=== PATIENT | male | born 1945 | race Caucasian/White ===

== ENCOUNTER 2016-06-04 05:49 | Inpatient (IN) | payer BC, MEDICARE ==
[2016-05-29 13:21] LABS: BASOPHILS 0.3 %; BASOPHILS ABSOLUTE 0.03 10/3/uL (0.0-0.16); EOSINOPHILS 1.9 %; EOSINOPHILS ABSOLUTE 0.19 10/3/uL (0.0-0.53); IMMATURE GRANULOCYTES 0.3 %; IMMATURE GRANULOCYTES ABSOLUTE 0.03 10/3/uL (0.0-0.11); LYMPHOCYTES 42.9 %; LYMPHOCYTES ABSOLUTE 4.38 10/3/uL (0.67-4.30); MEAN CORPUS HGB CONC 33.6 g/dL (32.0-36.0); MEAN CORPUSCULAR HEMOGLOB 28.9 pg (26.0-34.0); MEAN PLATELET VOLUME 11.6 fL (9.2-13.0); MONOCYTES 8.5 %; MONOCYTES ABSOLUTE 0.87 10/3/uL (0.21-1.20); NEUTROPHILS 46.1 %; PLATELET COUNT 252 10/3/uL (150-400); RED CELL COUNT 4.85 10/6/uL (4.7-6.1); WHITE BLOOD CELLS 10.2 10/3/uL (4.5-10.5)
[2016-05-29 13:22] LABS: HEMATOCRIT 41.7 % (40.0-51.0); MANUAL DIFF NO %
[2016-05-29 13:26] LABS: ASCORBIC ACID (UR NOT ORDER) NEG (NEG); BILIRUBIN, URINE NEGATIVE (NEG); KETONE, URINE NEGATIVE (NEG); LEUKOCYTE ESTERASE(NOT OR NEG (NEG); WBC (NOT ORDERED) (RFLEX) 1 (0-5)
[2016-05-29 13:29] LABS: INTERNATIONAL NORMAL RATI 1.1 UNITS (-); PARTIAL THROMBO TIME 31.7 SEC (22.5-37.2); PROTIME (NOT ORD) 13.7 SEC (12.0-14.5)
[2016-05-29 13:53] LABS: A/G RATIO 1.1 (0.7-1.9); ALBUMIN 4.2 G/DL (3.5-5.0); CALCIUM, SERUM 9.5 MG/DL (8.5-10.4); CHLORIDE, SERUM 102 MMOL/L (96-112); CO2 (CARBON DIOXIDE) 27 MMOL/L (24-34); CREATININE 0.85 MG/DL (0.70-1.30); GFR AFRICAN AMERICAN 100 ML/MIN (>=60); GFR NON AFRICAN AMERICAN 86 ML/MIN (>=60); GLUCOSE, SERUM 105 MG/DL (60-99); POTASSIUM, SERUM 4.2 MMOL/L (3.5-5.3); SGOT(AST) 11 U/L (5-40); SGPT(ALT) 23 U/L (5-65); SODIUM, SERUM 139 MMOL/L (135-148); TOTAL BILIRUBIN 0.4 MG/DL (0-1.2); TOTAL PROTEIN 8.2 G/DL (6.0-8.5)
[2016-05-29 13:54] LABS: ALKALINE PHOSPHATASE 75 U/L (45-117); BUN (BLOOD UREA NITROGEN) 12 MG/DL (6-23)
--- NOTE | ~2016-06-04 | CN ---
Consultation Report [facility] [address] [place]. [address] NAME: LAXMI MONTOYA : 41 STATUS : ADM IN LOCATED WITHIN [facility]#: [id number] AGE: 71 ADM/REG DATE : 06/04/16 MR#: [id number] REPORT SERV DATE: 06/04/16 DICTATED BY: DATE: REPORT STATUS : Draft TRANSCRIBED BY: MODL DATE: 06/04/16 DATE OF CONSULTATION: 06/04/2016 CHIEF COMPLAINT/REASON FOR CONSULTATION: Paroxysmal atrial fibrillation. HISTORY OF PRESENT ILLNESS: Mr. Laxmi Montoya is a very pleasant 71-year-old gentleman, who is scheduled for elective left knee arthroplasty today. His initial preop EKG demonstrated normal sinus rhythm. Today, when he came in for his procedure, he was found to be in atrial fibrillation with rapid ventricular response at 126 beats per minute. The patient is completely asymptomatic. He does not have any chest pain or shortness of breath. He denies palpitations or racing of his heart. He states that he worked in the yard recently without any symptoms whatsoever. He has a functional status greater than 4 METs. He denies any syncope or presyncopal episodes. He has had some swelling near his right knee arthroplasty placement, which was performed in February of this year. He does not have a previous history of atrial fibrillation. PAST MEDICAL HISTORY: 1. Hypertension. 2. Obesity. 3. Arthritis. 4. History of snoring. SOCIAL HISTORY: The patient is . He does not smoke, he quit 30 years ago. He has an occasional alcoholic beverage. He does not use extracurricular drugs. FAMILY HISTORY: Significant for mother with a history of arrhythmia and a brother who had myocardial infarction his early 60s. REVIEW OF SYSTEMS: All systems were reviewed and are negative, except for as dictated in the HPI. PHYSICAL EXAMINATION: VITAL SIGNS: At the bedside, the patient had a heart rate of 127 beats per minute and a blood pressure of 117/85. GENERAL: Mr. Montoya is a well-groomed, well-appearing 71-year-old gentleman, in no distress. NECK: No jugular venous distention. No carotid bruits. HEART: Irregular, tachycardic. Soft S1 and S2. I could not appreciate murmurs, rubs, or gallops. LUNGS: Clear to auscultation in all carolina. ABDOMEN: Obese and nontender. The abdominal aorta is nonpalpable. There are no renal bruits. EXTREMITIES: There is no pitting edema present. There is evidence of the patient's right knee arthroplasty noted with some mild edema at the knee. MUSCULOSKELETAL: I could not appreciate clubbing or cyanosis of the digits. Consultation Report [facility] [address] [place]. [address] NAME: LAXMI MONTOYA : 41 STATUS : ADM IN PAT#: [id number] AGE: 71 ADM/REG DATE : 06/04/16 MR#: [id number] REPORT SERV DATE: 06/04/16 DICTATED BY: DATE: REPORT STATUS : Draft TRANSCRIBED BY: MODL DATE: 06/04/16 NEUROLOGIC: There are no focal neurologic deficits. DATA: No electrolyte panel is available at this time. LABORATORY RESULTS: CBC demonstrates a hemoglobin of 13.1 and hematocrit of 39.3, a platelet count of 237, and white blood cell count of 9.3. An EKG this morning demonstrated the atrial fibrillation with rapid ventricular response at 126 beats per minute. There are no ischemic ST-T segment changes. An echocardiogram was ordered early in the evaluation, this demonstrated normal right and left ventricular systolic function. There is mitral annular calcification, but no significant valvular heart disease. The atrium is dilated bilaterally. IMPRESSION REPORT AND PLAN: 1. Paroxysmal atrial fibrillation. 2. Hypertension. 3. CHADS-VASc score equals 2. RECOMMENDATIONS: 1. Would check electrolyte panel, TSH, free T4, and magnesium. 2. Would replace electrolytes if needed. 3. There is no absolute cardiac contraindication to the patient's noncardiac surgery and the patient wishes to proceed, voicing understanding that he is at increased risk of stroke with atrial fibrillation. 4. This was discussed with Anesthesiology at the bedside, and heart rate control will be performed with calcium channel blockers or beta-blockers. Postoperatively, when safe from a surgery standpoint, we will anticoagulate with either a novel anticoagulant or warfarin and then if the patient fails to convert to normal rhythm, consider SAVANNAH cardioversion. It has been my pleasure to participate in the care of this patient. VETO/AXEL Chioma Peralta M.D. / [id number] CC: Nisa Ceballos III, M.D.
--- NOTE | ~2016-06-04 | HP ---
History And Physical [place] [id number] [place]. [address] NAME: LAXMI SAAVEDRA : 41 STATUS : ADM IN [facility]#: [id number] AGE: 71 ADM/REG DATE : 06/04/16 MR#: [id number] REPORT SERV DATE: 06/04/16 DICTATED BY: JHONATHAN HALL III DATE: 06/04/16 REPORT STATUS : Draft TRANSCRIBED BY: MODL DATE: 06/04/16 DATE OF ADMISSION: 06/04/2016 CHIEF COMPLAINT: Left knee pain. HISTORY: The patient is a 71-year-old elderly white male, who complains of pain in the left knee and has so for many years. He has a history of osteoarthritis of both knees, has previously undergone a right total knee arthroplasty on 02/27/2016 with a nice result. He is now having a lot of symptoms in his left knee. X-rays confirmed advanced tricompartmental osteoarthritis with [id number] deformity in the medial compartment. He is admitted for left total knee arthroplasty. Risks, benefits, and expected outcomes have been explained, but not limited to blood clots, infection, neurovascular injuries, patella maltracking problems, and component failures. When the patient arrived to the hospital, he was newly diagnosed with atrial fibrillation. A cardiac consult was obtained here at [facility] and an echocardiogram was done, which was normal. The patient was cleared for a left knee replacement surgery and is to be anticoagulated postoperatively. PAST MEDICAL HISTORY: Medically is significant for high blood pressure. Otherwise, he denies any history of liver, lung, or kidney problems. PREVIOUS SURGERIES: Include a right hip replacement on 01/14/2006, right knee replacement on 02/27/2016, and tonsillectomy. MEDICATIONS: Please see the MAR. ALLERGIES: NONE. SOCIAL HISTORY: Nonsmoker. Occasional beer. PHYSICAL EXAMINATION: GENERAL: He is alert and oriented x3. VITAL SIGNS: Stable. HEENT: Normocephalic, atraumatic. Pupils are equal, round, and reactive to light and accommodation. Extraocular muscles are intact. NECK: Supple. CHEST: Clear. HEART: Consistent with atrial fibrillation. ABDOMEN: Benign, soft, nontender. Positive bowel sounds. ORTHOPEDIC: Examination reveals marked tenderness to the left knee. He has range of motion of -15 to 120 degrees. He is tender to the medial joint line in the medial femoral condyle. He has 2+ valgus stress, 1+ varus stress. Varus alignment of about 8 degrees. IMAGING: X-rays confirmed advanced osteoarthritis of his left knee with [id number] deformity in medial compartment and patellofemoral changes. PLAN: Admission for left total knee arthroplasty. History And Physical [address] [place]. [address] NAME: LAXMI SAAVEDRA : 41 STATUS : ADM IN [facility]#: [id number] AGE: 71 ADM/REG DATE : 06/04/16 MR#: [id number] REPORT SERV DATE: 06/04/16 DICTATED BY: JHONATHAN HALL III DATE: 06/04/16 REPORT STATUS : Draft TRANSCRIBED BY: AXEL DATE: 06/04/16 LORENA/AXEL Jhonathan Hall III, M.D. / [id number] CC: Nisa Ceballos III, M.D.
--- NOTE | ~2016-06-04 | OP ---
Record Of Operation [facility] [address] [place]. [address] NAME: LAXMI SAAVEDRA : 41 STATUS : ADM IN PAT#: [id number] AGE: 71 ADM/REG DATE : 06/04/16 MR#: [id number] REPORT SERV DATE: 06/04/16 DICTATED BY: JHONATHAN HALL III DATE: 06/04/16 REPORT STATUS : Draft TRANSCRIBED BY: MODL DATE: 06/04/16 DATE OF PROCEDURE: 06/04/2016 PREOPERATIVE DIAGNOSIS: Advanced osteoarthritis of the left knee. POSTOPERATIVE DIAGNOSIS: Advanced osteoarthritis of the left knee. SURGICAL PROCEDURE PERFORMED: Left total knee arthroplasty using the DePuy Veaconune system with a size 6 femoral component, size 7 tibial tray, a +6 polyethylene insert and a 38 mm patella, posterior stabilized design. SURGEON: Jhonathan Hall M.D. SUPERVISOR MIRROR FABRICATION: Merle. ANESTHESIA: Spinal. CRYSTALLOID: 1700 mL. ESTIMATED BLOOD LOSS: 75 mL. TOURNIQUET TIME: 37 minutes. COMPLICATIONS: None. DRAINS: None. PROCEDURE IN DETAIL: The patient was brought to operating room where spinal anesthesia was induced per Anesthesia Department. The patient was sedated with IV propofol as well. Pneumonic tourniquet was applied to left upper thigh, and left lower extremities was prepped and draped in the usual sterile fashion. It was exsanguinated with a 6-inch Esmarch. Tourniquet was inflated to 350 mmHg. Assuring good anesthesia, a standard midline incision was made directly over the left knee followed by medial arthrotomy. The patella was everted. The knee was flexed to 90 degrees. Medial and lateral menisci were debrided along with the anterior cruciate ligament. A 5 mm step drill was used to enter the femoral canal and intramedullary guide was placed on 5 degrees valgus for left knee. This was pinned to the distal femur and intramedullary guide was removed. Distal femoral cut was made with the oscillating saw removing 10 mm of distal femur and cartilage. The distal femur was trialed to a size 6 femoral component, marked along the epicondylar axis. Multi-cutting guide was placed in these valencia, pinned to the distal femur. The anterior and posterior cuts were made along with the angled chamfer cuts. The intercondylar cutting guide was next centered and pinned to the distal femur. A reciprocating saw was used to make this cut for the posterior stabilized system. Trial reduction was carried out noting good cuts in all planes. Attention was turned toward the tibial side. The external tibial cutting guide was aligned Record Of Operation [place] [id number] [facility] [place]. [address] NAME: LAXMI SAAVEDRA : 41 STATUS : ADM IN PAT#: [id number] AGE: 71 ADM/REG DATE : 06/04/16 MR#: [id number] REPORT SERV DATE: 06/04/16 DICTATED BY: JHONATHAN HALL III DATE: 06/04/16 REPORT STATUS : Draft TRANSCRIBED BY: MODL DATE: 06/04/16 with the second metatarsal ray and pinned to the proximal tibia. Tibia oscillating saw was used to make this cut with a neutral degree cutting block. Trial reduction was carried out with a size 7 tibial baseplate and a +6 polyethylene insert, ligamentous balancing was required releasing the medial collateral ligament for ligamentous balancing, secondary to the longstanding varus deformity. Good extension was achieved. Nice flexion to 130 degrees, flexion and extension gaps were symmetrical. The undersurface of the patella was then resurfaced by transecting 9 to 10 mm of bone. A 38 mm patellar template was used to place three anchor holes in the undersurface of the patella. The tibia was then prepared with a drill and a punch. Two packs of methylmethacrylate were vacuum mixed and pressurized in the good dry cancellous bone. The real components were placed. Excess cement was removed. The real size 6 polyethylene insert was locked to the tibial tray. The tourniquet was released after 37 minutes. Bleeding was controlled with Bovie electrocautery. Thorough irrigation was carried out throughout the procedure with pulse lavage system. No drains were used. The medial arthrotomy was closed with #2 Ethibond suture and #1 Vicryl suture in 90 degree flexed position. Subcutaneous tissue was closed with 2-0 Vicryl. The skin was closed using running 4-0 Monocryl. Benzoin and Steri-Strips were applied. The patient tolerated the procedure well and was brought to recovery room in satisfactory condition. LORENA/AXEL Jhonathan Hall III, M.D. / [id number] CC: Jhonathan Hall III, M.D.
[~2016-06-04 05:49] MED LIST: ELIQUIS 2.5 MG2.5 MG PO; NORV5 PO; PERCOCET1 TA4 PO; ZIAC5 PO
[2016-06-04 08:57] LABS: BASOPHILS 0.3 %; BASOPHILS ABSOLUTE 0.03 10/3/uL (0.0-0.16); EOSINOPHILS 0.6 %; EOSINOPHILS ABSOLUTE 0.06 10/3/uL (0.0-0.53); HEMATOCRIT 39.3 % (40.0-51.0); HEMOGLOBIN 13.1 g/dL (13.6-17.8); IMMATURE GRANULOCYTES 0.3 %; IMMATURE GRANULOCYTES ABSOLUTE 0.03 10/3/uL (0.0-0.11); LYMPHOCYTES ABSOLUTE 2.59 10/3/uL (0.67-4.30); MEAN CORPUS HGB CONC 33.3 g/dL (32.0-36.0); MEAN PLATELET VOLUME 11.1 fL (9.2-13.0); MONOCYTES 7.2 %; MONOCYTES ABSOLUTE 0.67 10/3/uL (0.21-1.20); NEUTROPHILS 63.6 %; NEUTROPHILS ABSOLUTE 5.88 10/3/uL (2.02-8.40); PLATELET COUNT 237 10/3/uL (150-400); RBC DISTRIBUTION WIDTH 13.8 % (12.0-16.0); RED CELL COUNT 4.68 10/6/uL (4.7-6.1); WHITE BLOOD CELLS 9.3 10/3/uL (4.5-10.5)
[2016-06-04 08:58] LABS: MANUAL DIFF NO %
[2016-06-04 09:21] LABS: BUN (BLOOD UREA NITROGEN) 14 MG/DL (6-23); CHLORIDE, SERUM 106 MMOL/L (96-112); CO2 (CARBON DIOXIDE) 23 MMOL/L (24-34); CREATININE 0.87 MG/DL (0.70-1.30); FREE T4 0.92 NG/DL (0.76-1.46); GFR AFRICAN AMERICAN 99 ML/MIN (>=60); GFR NON AFRICAN AMERICAN 86 ML/MIN (>=60); GLUCOSE, SERUM 113 MG/DL (60-99); POTASSIUM, SERUM 4.1 MMOL/L (3.5-5.3); SODIUM, SERUM 140 MMOL/L (135-148)
[2016-06-04 09:22] LABS: CALCIUM, SERUM 8.5 MG/DL (8.5-10.4)
[2016-06-04 15:06] LABS: BUN (BLOOD UREA NITROGEN) 13 MG/DL (6-23); CALCIUM, SERUM 8.3 MG/DL (8.5-10.4); CHLORIDE, SERUM 106 MMOL/L (96-112); CO2 (CARBON DIOXIDE) 27 MMOL/L (24-34); CREATININE 0.78 MG/DL (0.70-1.30); FREE T4 0.93 NG/DL (0.76-1.46); GFR AFRICAN AMERICAN 104 ML/MIN (>=60); GFR NON AFRICAN AMERICAN 90 ML/MIN (>=60); GLUCOSE, SERUM 95 MG/DL (60-99); POTASSIUM, SERUM 4.3 MMOL/L (3.5-5.3); SODIUM, SERUM 142 MMOL/L (135-148)
[2016-06-05 07:18] LABS: HEMATOCRIT 32.1 % (40.0-51.0); HEMOGLOBIN 10.6 g/dL (13.6-17.8)
[2016-06-06 06:25] LABS: HEMATOCRIT 30.8 % (40.0-51.0); HEMOGLOBIN 10.2 g/dL (13.6-17.8)
[2016-06-06] MEDS ORDERED: PERCOCET 10/3251 TAB PO (09:18)
[2016-06-06] MEDS ORDERED: ELIQUIS 2.5 MG2.5 MG PO (09:18)
== END 2016-06-06 12:46 | disposition home or self-care (01) | DRG 470 ==
LOC: SDC/OF 05:49 → PACU 11:54 → 1SO 12:53
PROVIDERS: Internal Medicine; Orthopaedic Surgery
PROC: 3E0T3CZ (ICD-10-PCS; 2016-06-04)
PROC: 0SRD0J9 Replacement of Left Knee Joint with Synthetic Substitute, Cemented, Open Approach (ICD-10-PCS; principal; 2016-06-04 07:30)
DX: M17.12 Unilateral primary osteoarthritis, left knee (principal); I48.0 Paroxysmal atrial fibrillation; I10 Essential (primary) hypertension; Z96.641 Presence of right artificial hip joint; Z79.899 Other long term (current) drug therapy
CPT/HCPCS: 36415; 80048; 80053; 81001; 83735; 84439; 84443; 85014; 85018; 85025; 85610; 85730; 86850; 86900; 86901; 87641; 88305; 88311; 93005; 93306; 97110-GP; 97116-GP; 97161-GP; 97165-GO; A9270-GY; C1776; G8978-CJ-GP; G8979-CH-GP; J0690; J1885; J2250; J2270; J2274; J2370; J2795; J3010